=== PATIENT | male | born 1980 | race Caucasian/White ===

== ENCOUNTER 2024-11-30 00:36 | Day surgery (SDC) | payer OTHER, SELFPAY ==
[2024-11-21 14:09] VITALS: BMI 32.5
[2024-11-30 11:40] VITALS: BP 108/77; PULSE 108; RESP 16; TEMP 36.3; O2SAT 98; BMI 32.3
[2024-11-30] MEDS: LACTATED RINGERS 1,000 ML 150 ML IV CONT (11:44)
--- NOTE | 2024-11-30 12:42 | P.PNAN_ITS ---
Anes - Initial Pre Proc Eval Procedure: Operation Date: 11/30/24 12:30 Proposed Procedures p Screening Colonoscopy - Arley Harding MD Date/Time: 11/30/24 12:42 Surgeon: Arley Harding MD Pre Op Diagnosis: screen Patient Data Age: 44 Gender: M Height: 1.83 m Weight: 108.4 kg Last Vital Signs Temp 36.3 C L 11/30/24 11:40 Pulse 108 H 11/30/24 11:40 Resp 16 11/30/24 11:40 BP 108/77 11/30/24 11:40 Pulse Ox 98 11/30/24 11:40 O2 Del Method Room Air 11/30/24 11:40 Allergies Allergy/AdvReac Type Severity Reaction Status Date / Time No Known Allergies Allergy Mild Verified 11/30/24 11:39 Home Medications ?Medication ?Instructions ?Recorded ?Confirmed ?Type No Home Medications 09/05/24 11/21/24 History Patient hx anesthesia problems: none Family hx anesthesia problems: none Results Review: All pre-operative results and documents have been reviewed as part of the pre- operative evaluation. [facility] Past Medical History Medical History Trigger ring finger of right hand Seasonal allergies Right hand paresthesia Right hand pain Acute pain of left shoulder Family History Family History Grandparent Hypertension Cerebrovascular accident Family history of coronary artery disease Family history of Alzheimer's disease Father Family history of malignant neoplasm of stomach Other Diabetes mellitus Family history of cardiovascular disease Social History Social History Years smoked: 10 Smoking status: Never smoker Tobacco type: cigarettes Second hand tobacco smoke exposure: No Alcohol intake: current Drinks per week: 3 Substance use: never Substance use type: does not use Living arrangements: with family Spiritual care concerns: No Anes - Eval Final PreProcedure Day of Procedure 11/30/24 12:42 Patient weight: obese Heart: regular rate and rhythm Lungs: clear to auscultation Airway: Mallampati scale class II Neurological: alert and oriented Last oral intake: >/= 8 hours ASA classification: II Emergent: no Anesthetic plan: proceed Anesthesia type and monitoring: general GIVS and standard monitoring Results Review: All pre-operative results and documents have been reviewed as part of the pre- operative evaluation. Informed Consent: The patient's anesthetic plan and its attendant risks and benefits were discussed with the patient/family/POA. Questions were solicited and answers provided to the satisfaction of the patient/family/POA.
--- NOTE | 2024-11-30 12:53 | PM.HPGS ---
History of Present Illness History of Present Illness Consent: Risks, benefits, and alternatives have been discussed and questions answered. Patient agrees to proceed with procedure. Chief complaint: screen Narrative: Markus Nolasco is a 44 year old male here for first screening colonoscopy Review of Systems Review of Systems: All systems reviewed & are unremarkable except as noted in HPI and below PMFSH Past Medical History Medical History (Updated 11/30/24 @ 12:54 by Arley Harding MD) Colon cancer screening Trigger ring finger of right hand Seasonal allergies Right hand paresthesia Right hand pain Acute pain of left shoulder Family History Family History Grandparent Hypertension Cerebrovascular accident Family history of coronary artery disease Family history of Alzheimer's disease Father Family history of malignant neoplasm of stomach Other Diabetes mellitus Family history of cardiovascular disease Social History Social History Years smoked: 10 Smoking status: Never smoker Tobacco type: cigarettes Second hand tobacco smoke exposure: No Alcohol intake: current Drinks per week: 3 Substance use: never Substance use type: does not use Living arrangements: with family Spiritual care concerns: No Meds Home Medications and Allergies Home Medications ?Medication ?Instructions ?Recorded ?Confirmed ?Type No Home Medications 09/05/24 11/21/24 History Allergies Allergy/AdvReac Type Severity Reaction Status Date / Time No Known Allergies Allergy Mild Verified 11/30/24 11:39 Vital Signs Vital Signs - 24 hr 11/30/24 11:40 Temperature 97.3 F L Pulse Rate 108 H Respiratory Rate 16 Blood Pressure 108/77 Pulse Oximetry 98 Oxygen Delivery Room Air Exam Const: General: comfortable and no acute distress HENMT: Face/Nose/Sinus: Normal nares present Eyes: General: appearance normal, both eyes and all related structures Neck: Neck: no JVD Resp: Auscultation: clear to auscultation bilaterally Cardio: Rate: regular rate Rhythm: regular rhythm GI: Inspection: non-distended GI Palp: Yes Soft to palpation Skin: General skin exam: normal color Neuro: General: gait normal Speech: normal speech Extrem: General: normal to inspection Psych: Mental Status: mental status grossly normal Assessment and Plan Assessment and plan (1) Colon cancer screening: Code(s): Z12.11 - Encounter for screening for malignant neoplasm of colon Status: Acute Assessment and Plan: colonoscopy
[2024-11-30 13:12] VITALS: BP 108/75; PULSE 104; RESP 21; O2SAT 94
[2024-11-30 13:22] VITALS: BP 106/74; PULSE 79; RESP 19; O2SAT 94
[2024-11-30 13:32] VITALS: BP 111/76; PULSE 71; RESP 20; O2SAT 97
== END 2024-11-30 13:43 | disposition home or self-care (01) ==
PROVIDERS: PCP Family Medicine; Referring Provider Nurse Practitioner Family; Visit Provider Internal Medicine Gastroenterology
PROC: 0DJD8ZZ Inspection of Lower Intestinal Tract, Via Natural or Artificial Opening Endoscopic (ICD-10-PCS; CPT 45378; principal; 2024-11-30 12:30)
DX: Z12.11 Encounter for screening for malignant neoplasm of colon (principal); K64.8 Other hemorrhoids; E66.9 Obesity, unspecified; Z68.32 Body mass index [BMI] 32.0-32.9, adult
CPT/HCPCS: 45378; J2003; J2704; J7120

== ENCOUNTER 2025-07-31 11:15 | Outpatient (CLI) | payer OTHER, SELFPAY ==
--- NOTE | ~2025-07-31 | XR_ITS ---
EXAMINATION: XR shoulder RT min 2V, 07/31/2025 11:23 RECONCILING CLERK HISTORY: Acute right shoulder pain COMPARISON: No comparisons available. Findings: No acute fracture or malalignment. No significant degenerative changes. Soft tissues unremarkable. Impression: No acute fracture or malalignment. Reviewed, dictated and finalized at location P. NCILING CLERK Impression: No acute fracture or malalignment.
== END 2025-07-31 11:16 | disposition home or self-care (01) ==
LOC: MICIMG 11:18
PROVIDERS: PCP Family Medicine; Visit Provider Chiropractor
DX: M25.511 Pain in right shoulder (principal)
CPT/HCPCS: 73030